=== PATIENT | female | born 2000 | race Hispanic/Latino ===

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

== ENCOUNTER 2024-05-21 02:23 | Emergency (ER) | payer OTHER, SELFPAY ==
[2024-05-21] MEDS ORDERED: Docusate Sodium 100 MG/10 ML UDCUP PO SCH (02:45)
== END 2024-05-21 03:22 | disposition home or self-care (01) ==
LOC: ERS 02:23
DX: H61.21 Impacted cerumen, right ear (principal); F17.210 Nicotine dependence, cigarettes, uncomplicated
CPT/HCPCS: 69210